=== PATIENT | male | born 1990 | race Caucasian/White ===

== ENCOUNTER 2016-09-10 19:44 | Emergency (ER) | payer BC, OTHER ==
[2016-09-10] MEDS ORDERED: predniSONE 20 MG TAB As Ordered ONE (20:45)
--- NOTE | 2016-09-10 21:04 | EDDOCDS ---
Physician Documentation [facility] Name: Tashi Nick Age: 26 yrs Sex: Male : 1990 Arrival Date: 09/10/2016 Time: 19:44 Bed TR7 Private MD: NO PRIMARY PHYSICIAN, . Disposition: 09/10/16 20:54 Discharged to Home/Self Care. Impression: Trigeminal neuralgia. - Condition is Stable. - Discharge Instructions: Trigeminal Neuralgia. - Prescriptions for Prednisone 20 mg Oral Tablet - take 2 tablet by ORAL route once daily for 5 days; 10 tablet. - Medication Reconciliation, Local Pharmacy Hours form. - Follow up: Marta Gibson; When: 2 - 3 days; Reason: Recheck today's complaints, Continuance of care. Follow up: Alvaro Singh; When: 2 - 3 days; Reason: Recheck today's complaints, Continuance of care. - Problem is new. - Symptoms have improved. - Notes: WATCH FOR REDNESS, SWELLING, FEVER OR OTHER CONCERNING SYMPTOMS, IF ANY OF THESE OCCUR RETURN TO THE ER, FOLLOW UP WITH NEUROLOGY Historical: - Allergies: no known allergies; - Home Meds: 1. none - PMHx: none; - PSHx: none; - Social history: Smoking status: Patient states was never smoker of tobacco. No barriers to communication noted, The patient speaks fluent Portuguese. - Family history: Not pertinent. - : The pt / caregiver states he / she is not on anticoagulants. Home medication list is obtained from the patient. - Exposure Risk Screening:: None identified. Vital Signs: 09/10 19:45 BP 173 / 107; Pulse 87; Resp 16; Temp 96.7(O); Pulse Ox 100% on R/A; Weight 90.72 kg / elp 200 lbs (R); Height 6 ft. 3 in. (190.50 cm) (R); Pain 6/10; 20:47 BP 146 / 96 LA Sitting (auto/reg); Pulse 81; Resp 18; Temp 97.2(O); Pulse Ox 99% on ct3 R/A; Pain 6/10; 19:45 Body Mass Index 25.00 (90.72 kg, 190.50 cm) elp MDM: 20:43 predniSONE 40 mg PO once; administer with food or milk ordered. ck7 20:43 Recheck Vital Signs, perform reassessment and enter into [employer] ordered. ck7 21:01 [facility] Payment Agreement was scanned into [employer] and attached to record. ks16 21:02 Financial registration complete. ks16 Administered Medications: 20:50 Drug: predniSONE 40 mg [prednisone 20 mg tablet (2 tabs)] Route: PO; kmg1 Signatures: Tesha Zayas RN RN rs3 Krzysztof Bird, DMITRI-C RPA-Cck7 Colton Chicas RN RN Mindy Menon, Reg Reg ks16 Sammi Lomeli RN kmg1 The chart was reviewed and I authenticate all verbal orders and agree with the evaluation and treatment provided.Attachments: 21:01 [facility] Payment Agreement ks16 MTDD
--- NOTE | 2016-09-10 21:04 | EDDOCDS ---
Nurse's Notes [facility] Name: Tashi Nick Age: 26 yrs Sex: Male : 1990 Arrival Date: 09/10/2016 Time: 19:44 Bed TR7 Private MD: NO PRIMARY PHYSICIAN, . Diagnosis: Trigeminal neuralgia Presentation: 09/10 19:57 Presenting complaint: Presenting complaint: Patient states: right jaw soreness on and rs3 off for a week. Was seen by dentist. R/o dental carries. sudden onset of right jaw pain started this evening radiates to right mormonism and cheek. constant pain. no relief with Motrin. 20:00 Adult Sepsis Screening: The patient does not have new or worsening altered mentation. rs3 Patient's respiratory rate is less than 22. Systolic blood pressure is greater than 100. Patient has a qSOFA score of 0- Negative Sepsis Screen. Suicide/Homicide risk assessment- the patient denies having any suicidal and/or homicidal ideations and does not present with any other emotional, behavioral or mental health complaints. Status: Patient is not a human services program specialist or dependent. Transition of care: patient was not received from another setting of care. 20:00 Acuity: EAN Level 4 rs3 20:00 Method Of Arrival: Walkin/Carried/Asstd rs3 Triage Assessment: 20:03 General: Appears in no apparent distress. Pain: Location: right jaw. Pt Declines HIV rs3 testing. Historical: - Allergies: no known allergies; - Home Meds: 1. none - PMHx: none; - PSHx: none; - Social history: Smoking status: Patient states was never smoker of tobacco. No barriers to communication noted, The patient speaks fluent Nepali. - Family history: Not pertinent. - : The pt / caregiver states he / she is not on anticoagulants. Home medication list is obtained from the patient. - Exposure Risk Screening:: None identified. Screenin:01 Screening information is obtained from the patient. Fall risk: No risks identified. jmb Assistance ADL's: requires no assistance with activities of daily living. Abuse/DV Screen: The patient / caregiver reports he/she is: not in a situation that causes fear, pain or injury. Nutritional screening: No deficits noted. Advance Directives: Currently, there is no health care proxy. There is no active DNR order. There is no living will. There is no Power of Director Payment. home support is adequate. Assessment: 21:01 General: Patient instructed on discharge instructions. Patient asked if there were any b questions regarding dsihcarge, patient stated no. Patient signed discharge instructions. Patient discharged in stable condition.. Vital Signs: 19:45 BP 173 / 107; Pulse 87; Resp 16; Temp 96.7(O); Pulse Ox 100% on R/A; Weight 90.72 kg elp (R); Height 6 ft. 3 in. (190.50 cm) (R); Pain 6/10; 20:47 BP 146 / 96 LA Sitting (auto/reg); Pulse 81; Resp 18; Temp 97.2(O); Pulse Ox 99% on ct3 R/A; Pain 6/10; 19:45 Body Mass Index 25.00 (90.72 kg, 190.50 cm) elp Vitals: 19:45 Log In Time: September 10, 2016 at 19:43. [facility] ED Course: 19:45 Patient visited by Tammy Ramirez PCA. elp 19:45 [facility] is Private Physician. elp 19:45 NO PRIMARY PHYSICIAN, . is Private Physician. elp 19:45 Patient moved to Waiting elp 19:53 Patient visited by Tammy Ramirez PCA. elp 19:53 Patient moved to Pre RCE elp 20:03 Triage Initiated rs3 20:22 Patient moved to Triage 2 ct3 20:24 Krzysztof Bird RPA-C [facility] ck7 20:24 Bo Moses DO is Attending Physician. ck7 20:24 Patient visited by Krzysztof Bird RPA-C. ck7 20:47 Patient visited by Cinthia Ramirez PCA. ct3 20:48 Patient visited by Cinthia Ramirez PCA. ct3 20:53 Marta Gibson is Referral Physician. ck7 20:53 Alvaro Singh is Referral Physician. ck7 20:58 Patient moved to TR7 ct3 21:01 [facility] Payment Agreement was scanned into [employer] and attached to record. ks16 21:01 The patient / caregiver is instructed regarding the plan of care and ED course. jmb 21:01 No IV's were initiated during this patient's visit. No procedures done that require jmb assistance. Administered Medications: 20:50 Drug: predniSONE 40 mg [prednisone 20 mg tablet (2 tabs)] Route: PO; kmg1 Order Results: There are currently no results for this order. Outcome: 20:54 Discharge ordered by Provider. ck7 21:01 Discharge Assessment: Patient awake, alert and oriented x 3. No cognitive and/or jmb functional deficits noted. Patient verbalized understanding of disposition instructions. Patient awake and alert. obeys commands, Oriented to person, place and time. Patient verbalized understanding of disposition instructions. Patient has no functional deficits. patient administered narcotics - no. The following High Risk Discharge criteria are identified: None. Discharged to home ambulatory. Condition: stable Condition: improved. Discharge instructions given to patient, Instructed on discharge instructions, follow up and referral plans. medication usage, Demonstrated understanding of instructions, medications, Pt was receptive of discharge instructions/ teaching. Prescriptions given X 1. No special radiology studies were completed. Property sent home with patient. 21:03 Patient left the ED. b Signatures: Sammi oLmeli, RN RN kmg1 Tesha Zayas,RN RN rs3 Cinthia Ramirez, POWERHOUSE OPERATOR POWERHOUSE OPERATOR ct3 Krzysztof Bird, RPA-C RPA-Cck7 Tammy Ramirez, POWERHOUSE OPERATOR POWERHOUSE OPERATOR Colton Hendricks,RN RN edsonb Mindy Solano, Reg Reg ks16 Corrections: (The following items were deleted from the chart) 20:03 19:57 Presenting complaint: rs3 rs3 20:48 20:47 BP 146 / 96 Sitting Auto L Arm Regular; ct3 ct3 MTDD
--- NOTE | 2016-09-12 22:04 | EDDOCDS ---
Physician Documentation [facility] Name: Tashi Nick Age: 26 yrs Sex: Male : 1990 Arrival Date: 09/10/2016 Time: 19:44 Bed TR7 Private MD: NO PRIMARY PHYSICIAN, . Disposition: 09/10/16 20:54 Discharged to Home/Self Care. Impression: Trigeminal neuralgia. - Condition is Stable. - Discharge Instructions: Trigeminal Neuralgia. - Prescriptions for Prednisone 20 mg Oral Tablet - take 2 tablet by ORAL route once daily for 5 days; 10 tablet. - Medication Reconciliation, Local Pharmacy Hours form. - Follow up: Marta Gibson; When: 2 - 3 days; Reason: Recheck today's complaints, Continuance of care. Follow up: Alvaro Singh; When: 2 - 3 days; Reason: Recheck today's complaints, Continuance of care. - Problem is new. - Symptoms have improved. - Notes: WATCH FOR REDNESS, SWELLING, FEVER OR OTHER CONCERNING SYMPTOMS, IF ANY OF THESE OCCUR RETURN TO THE ER, FOLLOW UP WITH NEUROLOGY Historical: - Allergies: no known allergies; - Home Meds: 1. none - PMHx: none; - PSHx: none; - Social history: Smoking status: Patient states was never smoker of tobacco. No barriers to communication noted, The patient speaks fluent Lao. - Family history: Not pertinent. - : The pt / caregiver states he / she is not on anticoagulants. Home medication list is obtained from the patient. - Exposure Risk Screening:: None identified. Vital Signs: 09/10 19:45 BP 173 / 107; Pulse 87; Resp 16; Temp 96.7(O); Pulse Ox 100% on R/A; Weight 90.72 kg / elp 200 lbs (R); Height 6 ft. 3 in. (190.50 cm) (R); Pain 6/10; 20:47 BP 146 / 96 LA Sitting (auto/reg); Pulse 81; Resp 18; Temp 97.2(O); Pulse Ox 99% on ct3 R/A; Pain 6/10; 19:45 Body Mass Index 25.00 (90.72 kg, 190.50 cm) elp MDM: 20:43 predniSONE 40 mg PO once; administer with food or milk ordered. ck7 20:43 Recheck Vital Signs, perform reassessment and enter into MedHost ordered. ck7 21: [facility] Payment Agreement was scanned into [employer] and attached to record. ks16 21:02 Financial registration complete. 09/11 18:59 T-Sheet-- Draft Copy was scanned into [employer] and attached to record. kf3 Administered Medications: 09/10 20:50 Drug: predniSONE 40 mg [prednisone 20 mg tablet (2 tabs)] Route: PO; kmg1 Signatures: Ian Cancino, Reg Reg kf3 Tesha Zayas,RN RN rs3 Krzysztof Bird, RPA-C RPA-Cck7 Colton Chicas,RN RN Mindy Menon, Reg Reg ks16 Sammi Lomeli RN kmg1 The chart was reviewed and I authenticate all verbal orders and agree with the evaluation and treatment provided.Attachments: 21: [facility] Payment Agreement 09/11 18:59 T-Sheet-- Draft Copy kf3 Chart Complete MTDD
--- NOTE | 2016-09-12 22:04 | EDDOCDS ---
Physician Documentation [facility] Name: Tashi Nick Age: 26 yrs Sex: Male : 1990 Arrival Date: 09/10/2016 Time: 19:44 Bed TR7 Private MD: NO PRIMARY PHYSICIAN, . Disposition: 09/10/16 20:54 Discharged to Home/Self Care. Impression: Trigeminal neuralgia. - Condition is Stable. - Discharge Instructions: Trigeminal Neuralgia. - Prescriptions for Prednisone 20 mg Oral Tablet - take 2 tablet by ORAL route once daily for 5 days; 10 tablet. - Medication Reconciliation, Local Pharmacy Hours form. - Follow up: Marta Gibson; When: 2 - 3 days; Reason: Recheck today's complaints, Continuance of care. Follow up: Alvaro Singh; When: 2 - 3 days; Reason: Recheck today's complaints, Continuance of care. - Problem is new. - Symptoms have improved. - Notes: WATCH FOR REDNESS, SWELLING, FEVER OR OTHER CONCERNING SYMPTOMS, IF ANY OF THESE OCCUR RETURN TO THE ER, FOLLOW UP WITH NEUROLOGY Historical: - Allergies: no known allergies; - Home Meds: 1. none - PMHx: none; - PSHx: none; - Social history: Smoking status: Patient states was never smoker of tobacco. No barriers to communication noted, The patient speaks fluent Korean. - Family history: Not pertinent. - : The pt / caregiver states he / she is not on anticoagulants. Home medication list is obtained from the patient. - Exposure Risk Screening:: None identified. Vital Signs: 09/10 19:45 BP 173 / 107; Pulse 87; Resp 16; Temp 96.7(O); Pulse Ox 100% on R/A; Weight 90.72 kg / elp 200 lbs (R); Height 6 ft. 3 in. (190.50 cm) (R); Pain 6/10; 20:47 BP 146 / 96 LA Sitting (auto/reg); Pulse 81; Resp 18; Temp 97.2(O); Pulse Ox 99% on ct3 R/A; Pain 6/10; 19:45 Body Mass Index 25.00 (90.72 kg, 190.50 cm) elp MDM: 20:43 predniSONE 40 mg PO once; administer with food or milk ordered. ck7 20:43 Recheck Vital Signs, perform reassessment and enter into Med[employer] ordered. ck7 21: [facility] Payment Agreement was scanned into [employer] and attached to record. ks16 21:02 Financial registration complete. 09/11 18:59 T-Sheet-- Draft Copy was scanned into [employer] and attached to record. kf3 Administered Medications: 09/10 20:50 Drug: predniSONE 40 mg [prednisone 20 mg tablet (2 tabs)] Route: PO; kmg1 Signatures: Ian Cancino, Reg Reg kf3 Tesha Zayas,RN RN rs3 Krzysztof Bird, RPA-C RPA-Cck7 Colton Chicas,RN RN Mindy Menon, Reg Reg ks16 Sammi Lomeli RN kmg1 The chart was reviewed and I authenticate all verbal orders and agree with the evaluation and treatment provided.Attachments: 21: [facility] Payment Agreement 09/11 18:59 T-Sheet-- Draft Copy kf3 Chart Complete MTDD
--- NOTE | 2016-09-12 22:04 | EDDOCDS ---
Nurse's Notes [facility] Name: Tashi Nick Age: 26 yrs Sex: Male : 1990 Arrival Date: 09/10/2016 Time: 19:44 Bed TR7 Private MD: NO PRIMARY PHYSICIAN, . Diagnosis: Trigeminal neuralgia Presentation: 09/10 19:57 Presenting complaint: Presenting complaint: Patient states: right jaw soreness on and rs3 off for a week. Was seen by dentist. R/o dental carries. sudden onset of right jaw pain started this evening radiates to right advent and cheek. constant pain. no relief with Motrin. 20:00 Adult Sepsis Screening: The patient does not have new or worsening altered mentation. rs3 Patient's respiratory rate is less than 22. Systolic blood pressure is greater than 100. Patient has a qSOFA score of 0- Negative Sepsis Screen. Suicide/Homicide risk assessment- the patient denies having any suicidal and/or homicidal ideations and does not present with any other emotional, behavioral or mental health complaints. Status: Patient is not a neon sign servicer or dependent. Transition of care: patient was not received from another setting of care. 20:00 Acuity: EAN Level 4 rs3 20:00 Method Of Arrival: Walkin/Carried/Asstd rs3 Triage Assessment: 20:03 General: Appears in no apparent distress. Pain: Location: right jaw. Pt Declines HIV rs3 testing. Historical: - Allergies: no known allergies; - Home Meds: 1. none - PMHx: none; - PSHx: none; - Social history: Smoking status: Patient states was never smoker of tobacco. No barriers to communication noted, The patient speaks fluent Hungarian. - Family history: Not pertinent. - : The pt / caregiver states he / she is not on anticoagulants. Home medication list is obtained from the patient. - Exposure Risk Screening:: None identified. Screenin:01 Screening information is obtained from the patient. Fall risk: No risks identified. jmb Assistance ADL's: requires no assistance with activities of daily living. Abuse/DV Screen: The patient / caregiver reports he/she is: not in a situation that causes fear, pain or injury. Nutritional screening: No deficits noted. Advance Directives: Currently, there is no health care proxy. There is no active DNR order. There is no living will. There is no Power of Arabic Professor. home support is adequate. Assessment: 21:01 General: Patient instructed on discharge instructions. Patient asked if there were any b questions regarding dsihcarge, patient stated no. Patient signed discharge instructions. Patient discharged in stable condition.. Vital Signs: 19:45 BP 173 / 107; Pulse 87; Resp 16; Temp 96.7(O); Pulse Ox 100% on R/A; Weight 90.72 kg elp (R); Height 6 ft. 3 in. (190.50 cm) (R); Pain 6/10; 20:47 BP 146 / 96 LA Sitting (auto/reg); Pulse 81; Resp 18; Temp 97.2(O); Pulse Ox 99% on ct3 R/A; Pain 6/10; 19:45 Body Mass Index 25.00 (90.72 kg, 190.50 cm) elp Vitals: 19:45 Log In Time: September 10, 2016 at 19:43. [facility] ED Course: 19:45 Patient visited by Tammy Ramirez PCA. elp 19:45 [facility] is Private Physician. elp 19:45 NO PRIMARY PHYSICIAN, . is Private Physician. elp 19:45 Patient moved to Waiting elp 19:53 Patient visited by Tammy Ramirez PCA. elp 19:53 Patient moved to Pre RCE elp 20:03 Triage Initiated rs3 20:22 Patient moved to Triage 2 ct3 20:24 Krzysztof Bird RPA-C [facility]. ck7 20:24 Bo Moses DO is Attending Physician. ck7 20:24 Patient visited by Krzysztof Bird RPA-C. ck7 20:47 Patient visited by Cinthia Ramirez PCA. ct3 20:48 Patient visited by Cinthia Ramirez PCA. ct3 20:53 Marta Gibson is Referral Physician. ck7 20:53 Alvaro Singh is Referral Physician. ck7 20:58 Patient moved to TR7 ct3 21:01 [facility] Payment Agreement was scanned into [employer] and attached to record. ks16 21:01 The patient / caregiver is instructed regarding the plan of care and ED course. jmb 21:01 No IV's were initiated during this patient's visit. No procedures done that require jmb assistance. 21:15 Patient name changed from [place]\S\\S\Nick\S\ to Beau\S\ \S\Nick. EDMS 09/11 18:59 T-Sheet-- Draft Copy was scanned into [employer] and attached to record. kf3 Administered Medications: 09/10 20:50 Drug: predniSONE 40 mg [prednisone 20 mg tablet (2 tabs)] Route: PO; kmg1 Order Results: There are currently no results for this order. Outcome: 20:54 Discharge ordered by Provider. ck7 21:01 Discharge Assessment: Patient awake, alert and oriented x 3. No cognitive and/or jmb functional deficits noted. Patient verbalized understanding of disposition instructions. Patient awake and alert. obeys commands, Oriented to person, place and time. Patient verbalized understanding of disposition instructions. Patient has no functional deficits. patient administered narcotics - no. The following High Risk Discharge criteria are identified: None. Discharged to home ambulatory. Condition: stable Condition: improved. Discharge instructions given to patient, Instructed on discharge instructions, follow up and referral plans. medication usage, Demonstrated understanding of instructions, medications, Pt was receptive of discharge instructions/ teaching. Prescriptions given X 1. No special radiology studies were completed. Property sent home with patient. 21:03 Patient left the ED. mata Signatures: Dispatcher [facility] Sammi Lomeli, RN RN kmg1 Ian Cancino, Reg Reg kf3 Tesha ZayasRN IAN rs3 Cinthia Ramirez, RETORT SETTER RETORT SETTER ct3 Krzysztof Bird, RPA-C RPA-Cck7 Tammy Ramirez, RETORT SETTER RETORT SETTER Colton HendricksRN Mindy Perez, Reg Reg ks16 Corrections: (The following items were deleted from the chart) 20:03 19:57 Presenting complaint: rs3 rs3 20:48 20:47 BP 146 / 96 Sitting Auto L Arm Regular; ct3 ct3 Chart Complete MTDD
== END 2016-09-10 21:03 | disposition home or self-care (01) ==
LOC: M ED 19:44
DX: G50.0 Trigeminal neuralgia (principal)

== ENCOUNTER → 2016-09-19 | Outpatient (REF) | payer BC, OTHER ==
[2016-09-19 14:02] LABS: BASO % 0.2 % (0.0-1.0); EOS # 0.2 K/mm3 (0.0-0.50); EOS % 2.5 % (0.0-3.0); LARGE UNSTAINED CELL # 0.2 K/mm3 (0.0-0.4); LARGE UNSTAINED CELL % 1.6 % (0.0-4.0); LYMPH # 1.7 K/mm3 (1.5-6.5); LYMPH % 17.7 % (24.0-44.0); MEAN CORPUSCULAR HEMOGLOBIN 28.2 pg (27.0-33.0); MEAN CORPUSCULAR HGB CONC 33.9 g/dl (32.0-36.5); MEAN CORPUSCULAR VOLUME 83.3 fl (80.0-96.0); MONO # 0.5 K/mm3 (0.0-0.8); MONO % 5.4 % (0.0-5.0); NEUTROPHILS # 6.8 K/mm3 (1.8-7.7); NEUTROPHILS % 72.6 % (36.0-66.0); PLATELET COUNT, AUTOMATED 229 k/mm3 (150-450); RED CELL DISTRIBUTION WIDTH 12.2 % (11.5-14.5); WHITE BLOOD COUNT 9.3 K/mm3 (4.0-10.0)
[2016-09-19 14:10] LABS: ALBUMIN 4.8 GM/DL (3.2-5.2); ALBUMIN/GLOBULIN RATIO 1.45 (1.00-1.93); ALKALINE PHOSPHATASE 78 U/L (45-117); ALT/SGPT 35 U/L (12-78); ANION GAP 6 MEQ/L (8-16); AST/SGOT 15 U/L (15-37); BILIRUBIN,TOTAL 0.6 MG/DL (0.2-1.0); BLOOD UREA NITROGEN 20 MG/DL (7-18); CALCIUM LEVEL 9.8 MG/DL (8.5-10.1); CARBON DIOXIDE LEVEL 30 MEQ/L (21-32); CHLORIDE LEVEL 105 MEQ/L (98-107); CREATININE FOR GFR 0.85 MG/DL (0.70-1.30); FOLATE > 24.0 NG/ML; GLOMERULAR FILTRATION RATE > 60.0 (>60); GLUCOSE, FASTING 91 MG/DL (70-105); POTASSIUM SERUM 4.7 MEQ/L (3.5-5.1); SODIUM LEVEL 141 MEQ/L (136-145); TOTAL PROTEIN 8.1 GM/DL (6.4-8.2); VITAMIN B12 LEVEL > 2000 PG/ML
[2016-09-19 16:13] LABS: ERYTHROCYTE SEDIMENTATION RATE 4 mm/hr (0-15)
[2016-09-21 00:06] LABS: Lyme Disease IgG/IgM Antibodie <0.91 ISR (0.00-0.90); Lyme Disease IgM Ab Quantitati <0.80 index (0.00-0.79)
[2016-09-21 14:16] LABS: VITAMIN E LEVEL 14.6 mg/L (5.3-17.5)
== END ==
LOC: M LABNEURO 13:20
PROVIDERS: ATTEND Psychiatry & Neurology Neurology
DX: G62.9 Polyneuropathy, unspecified (principal)

== ENCOUNTER → 2017-07-04 | Outpatient (CLI) | payer BC, OTHER ==
--- NOTE | 2017-07-11 19:09 | SLEEPHOME ---
DATE OF PROCEDURE: 07/04/2017 REFERRING PHYSICIAN: Richard Dia [facility] home sleep testing was performed due to concern for the obstructive sleep apnea syndrome. For testing a NOX-T3 respiratory monitoring device was used. Continuous record was made of pulse, oxygen saturation, airflow, chest and abdominal strain and body position. 10 hours and 6 minutes of data were reviewed. There were 7 hours and 25 minutes marked as time in bed. During the interval marked time in bed there were 53 respiratory events were identified of 10 seconds in duration or greater for a respiratory event index of 7.1. The events were primary obstructive. Baseline pulse rate was 75. Pulse rate range 60 to 119. Baseline oxygen saturation was 94%. Lowest oxygen saturation was 84%. Testing was performed in both the supine and non-supine positions. IMPRESSION: Abnormal home sleep testing with repetitive respiratory events and oxygen desaturations to 84% with a respiratory event index of 7 is consistent with the obstructive sleep apnea syndrome. RECOMMENDATIONS: The patient should be referred for formal sleep evaluation and in laboratory pressure titration.
== END ==
LOC: M SLEEP HO 13:59
PROVIDERS: ATTEND Physician Assistant
DX: R06.83 Snoring (principal)

== ENCOUNTER → 2017-10-08 | Outpatient (CLI) | payer BC, OTHER | LOC: M SLEEP 20:00 | DX: G47.33 Obstructive sleep apnea (adult) (pediatric) (principal) | CPT/HCPCS: 95811 ==